=== PATIENT | female | born 1990 | race Caucasian/White ===

== ENCOUNTER 2022-07-19 13:21 | Inpatient (IN) | payer BC ==
[2022-07-19] MEDS ORDERED: Methylergonovine 0.2 MG/1 ML Amp IM PRN (14:20)
[2022-07-19] MEDS ORDERED: Water For Irrigation,Sterile 1,000 ML Container IRR PRN ×2 (14:20→20:43)
[2022-07-19] MEDS ORDERED: Sodium Chloride 0.9% 20 ML SDV IV PRN (14:20)
[2022-07-19] MEDS ORDERED: Misoprostol 200 MCG Tab PO PRN ×2 (14:20→20:43)
[2022-07-19] MEDS ORDERED: Tranexamic Acid 1,000 MG in Sodium Chloride 0.9% 100 ML IV PRN (14:20)
[2022-07-19] MEDS ORDERED: Sodium Chloride 0.9% 2.5 ML Syringe FLUSH PRN (14:20)
[2022-07-19] MEDS ORDERED: Butorphanol 1 MG/ML SDV IVPUSH PRN ×2 (14:20→20:43)
[2022-07-19] MEDS ORDERED: Lidocaine 1% 50 ML MDV INJECT PRN ×2 (14:20→20:43)
[2022-07-19] MEDS ORDERED: Sodium Chloride 0.9% 10 ML Syringe FLUSH PRN (14:20)
[2022-07-19] MEDS ORDERED: Carboprost Tromethamine 250 MCG/1 ML Amp IM PRN (14:20)
[2022-07-19] MEDS ORDERED: Oxytocin/0.9 % Sodium Chloride 30 UNIT/500 ML BAG IV SCH (14:30)
[2022-07-19] MEDS: Lactated Ringers 1,000 ML IV SCH ×2 (14:55→15:52)
[2022-07-19] MEDS ORDERED: Ropivacaine/PF 400 MG/200 ML PCA ONE (15:02)
[2022-07-19] MEDS ORDERED: Bupivacaine 0.5% 10 ML SDV ONE (15:02)
[2022-07-19] MEDS ORDERED: ePHEDrine 50 MG/ML SDV IVPUSH PRN ×2 (15:28)
[2022-07-19] MEDS ORDERED: Phenylephrine HCl In 0.9% NaCl 1 MG/10 ML Vial IVPUSH PRN (15:28)
[2022-07-19] MEDS ORDERED: Phenylephrine HCl In 0.9% NaCl 1 MG/10 ML Vial IVPUSH SCH (15:30)
[2022-07-19] MEDS ORDERED: Ropivacaine HCl/PF 400 MG in Premix Bag 1 BAG EPIDUR SCH (15:30)
[2022-07-19 16:00] LABS: CARBON DIOXIDE,CO2 22.1 mmol/L (21.0-32.0)
[2022-07-19] MEDS ORDERED: Witch Hazel Medicated Pads 40/Jar TOP PRN (20:31)
[2022-07-19] MEDS ORDERED: Benzocaine/Menthol 20%-0.5% Spray 78 GM Cannister TOP PRN (20:31)
[2022-07-19] MEDS ORDERED: Ibuprofen 800 MG Tab PO PRN ×2 (20:31→20:44)
[2022-07-19] MEDS ORDERED: Lanolin 100% Cream 7 GM Tube TOP PRN (20:31)
[2022-07-19] MEDS ORDERED: Docusate Sodium 100 MG Cap PO PRN ×2 (20:31→20:43)
[2022-07-19] MEDS ORDERED: Bisacodyl 10 MG Supp RECTAL PRN (20:31)
[2022-07-19] MEDS ORDERED: Ibuprofen 400 MG Tab PO PRN ×2 (20:31→20:44)
[2022-07-19] MEDS ORDERED: oxyCODONE 5 MG Tab PO PRN (20:31)
[2022-07-19] MEDS ORDERED: Acetaminophen 500 MG Tab PO PRN (20:31)
[2022-07-19] MEDS ORDERED: Lactated Ringers 1,000 ML IV SCH (20:45)
[2022-07-19] MEDS: Acetaminophen 500 MG Tab PO PRN (23:46)
[2022-07-20 06:14] LABS: CARBON DIOXIDE,CO2 22.2 mmol/L (21.0-32.0); POTASSIUM,K 3.6 mmol/L (3.5-5.1)
[2022-07-20] MEDS: Acetaminophen 500 MG Tab PO PRN (16:31)
[2022-07-20] MEDS ORDERED: Labetalol 100 MG Tab PO PRN (22:05)
== END 2022-07-21 12:34 | disposition home or self-care (01) | DRG 560 ==
LOC: MW.OBCHECK 13:21 → MW.OB 13:23 → MW.OBCHECK 14:19 → MW.OB 14:20 → OBSVTOIN 20:09 → MW.OB 23:05
PROVIDERS: ADMIT Obstetrics & Gynecology; ATTEND Obstetrics & Gynecology
PROC: 10E0XZZ Delivery of Products of Conception, External Approach (ICD-10-PCS; principal; 2022-07-19)
PROC: 3E0R3BZ Introduction of Anesthetic Agent into Spinal Canal, Percutaneous Approach (ICD-10-PCS; 2022-07-19)
PROC: 00HU33Z Insertion of Infusion Device into Spinal Canal, Percutaneous Approach (ICD-10-PCS; 2022-07-19)
DX: O99.12 Other diseases of the blood and blood-forming organs and certain disorders involving the immune mechanism complicating childbirth (principal); D69.6 Thrombocytopenia, unspecified; Z37.0 Single live birth; O98.52 Other viral diseases complicating childbirth; U07.1 COVID-19; O13.4 Gestational [pregnancy-induced] hypertension without significant proteinuria, complicating childbirth; O71.82 Other specified trauma to perineum and vulva; Z20.822 Contact with and (suspected) exposure to COVID-19; Z3A.40 40 weeks gestation of pregnancy
CPT/HCPCS: 36415; 51702; 59025; 59409; 80053; 82570; 82803; 84156; 84550; 85027; 86592; 86850; 86900; 86901; A9270-GY; J2590; J2795; J3490; J7120; U0002

== ENCOUNTER 2024-07-04 03:32 | Emergency (ER) | payer BC ==
[2024-07-04] MEDS: Morphine 4 MG/ML Syringe ONE (04:04)
[2024-07-04] MEDS: Ketorolac 30 MG/ML SDV IVPUSH ONE (04:20)
[2024-07-04] MEDS: Amoxicillin/Clavulanate K 875-125 MG Tab PO STA (04:21)
[2024-07-04] MEDS: Ketorolac 30 MG/ML SDV IM ONE (04:23)
== END 2024-07-04 04:32 | disposition home or self-care (01) ==
LOC: MERGE 03:32 → MW.ED 03:32
DX: K02.9 Dental caries, unspecified (principal)
CPT/HCPCS: 96372; 99282; A9270; J1885